=== PATIENT | female | born 1950 | race Caucasian/White ===

== ENCOUNTER → 2019-07-28 08:17 | Outpatient (CLI) | payer OTHER, MEDICARE, SELFPAY ==
--- NOTE | ~2019-07-28 | MM_ITS ---
EXAMINATION: MM screening carlie BI w zain HISTORY: Screening mammogram TECHNIQUE: Craniocaudal and mediolateral oblique 3-D tomosynthesis images were obtained and synthetic 2-D images were generated. CAD analysis was submitted and interpreted. COMPARISON: 07/01/2018, 06/13/2017, 05/15/2016 bilateral digital screening mammogram examinations BREAST PARENCHYMAL COMPOSITION: There are scattered areas of fibroglandular density. FINDINGS: Occasional benign calcifications. There is no evidence of suspicious mass, calcification, o r architectural distortion to suggest malignancy in either breast. There has been no suspicious inter rusty change. IMPRESSION: 1. No mammographic evidence of malignancy. 2. Recommend routine screening mammography in one year. BI-RADS Category 2: Benign finding(s). Reviewed, dictated and finalized at location A. CE EXEC[employer]IVE
== END ==
PROVIDERS: PCP Family Medicine; Visit Provider Family Medicine
DX: Z12.31 Encounter for screening mammogram for malignant neoplasm of breast (principal)
CPT/HCPCS: 77063; 77067

== ENCOUNTER → 2020-09-06 07:46 | Outpatient (CLI) | payer OTHER, MEDICARE, SELFPAY ==
--- NOTE | ~2020-09-06 | MM_ITS ---
EXAMINATION: MM screening carlie BI w zain HISTORY: Screening TECHNIQUE: Craniocaudal and mediolateral oblique 3-D tomosynthesis images were obtained and synthetic 2-D images were generated. CAD analysis was submitted and interpreted. COMPARISON: Comparison to multiple prior studies sequentially, with oldest reviewed study dated 02/27. BREAST PARENCHYMAL COMPOSITION: There are scattered areas of fibroglandular density. FINDINGS: There are new focal asymmetries in the outer aspect of the right breast on CC view with pos sible architectural distortion. The left breast is stable without evidence for malignancy. IMPRESSION: 1. Focal right breast asymmetries laterally on CC view. 2. Additional mammographic views and possible breast ultrasound are recommended. BI-RADS Category 0: Incomplete: Needs additional imaging evaluation. Reviewed, dictated and finalized at location A. IMPRESSION: 1. Focal right breast asymmetries laterally on CC view. 2. Additional mammographic views and possible breast ultrasound are recommended . BI-RADS Category 0: Incomplete: Needs additional imaging evaluation.
== END ==
PROVIDERS: PCP Family Medicine; Visit Provider Family Medicine
DX: Z12.31 Encounter for screening mammogram for malignant neoplasm of breast (principal); R92.8 Other abnormal and inconclusive findings on diagnostic imaging of breast
CPT/HCPCS: 77063; 77067

== ENCOUNTER 2020-09-25 12:35 | Emergency (ER) | payer OTHER, MEDICARE, SELFPAY ==
--- NOTE | ~2020-09-25 | CT_ITS ---
EXAMINATION: CT abdomen pelvis wo con DATE: 09/25/2020 15:06 INDICATION: Abdominal pain. TECHNIQUE: Computed tomography (CT) of the abdomen and pelvis was performed without intravenous contr ast. Automated exposure control and iterative reconstruction technique were employed. The dose-length product was 349.30 mGy-cm. COMPARISON: None. FINDINGS: The visualized portions of the lung bases demonstrate emphysema and mild atelectasis. No pl eural effusion. The heart size is normal. No pericardial effusion. There is a small sliding hiatal he rnia. There is diffuse hepatic steatosis. The pancreas, spleen, and adrenal glands are normal. There is moderate right hydronephrosis and hydroureter. There is moderate left hydronephrosis and hydrouret er. There is asymmetric edema around left kidney. The bladder is markedly distended. There are no dil ated loops of bowel. The appendix is normal. There are no pathologically enlarged lymph nodes. There is no free intraperitoneal fluid. There is mild lumbar spondylosis. IMPRESSION: 1. Markedly distended bladder with moderate bilateral hydronephrosis and hydroureter. Reviewed, dictated and finalized at location A. IMPRESSION: 1. Markedly distended bladder with moderate bilateral hydronephrosis and hydrou reter.
[2020-09-25 12:47] VITALS: BP 143/70; PULSE 80; RESP 16; TEMP 36.2; O2SAT 98
[2020-09-25 13:19] VITALS: BP 143/70; PULSE 80; RESP 18; TEMP 36.2; O2SAT 98
--- NOTE | 2020-09-25 14:07 | ED.GENADULT ---
HPI - General Adult General Chief complaint: Urogenital-Female Stated complaint: ?UTI Time Seen by Provider: 09/25/20 13:50 Source: patient and RN notes reviewed Mode of arrival: ambulatory Limitations: no limitations History of Present Illness HPI narrative: This is a 70 year old female with history of cervical Cancer 2018 s/p radiation who presents for evaluation of lower abdominal pain and back pain. She states she is getting evaluated at [facility] by her oncologist for possible return of her cancer. She reports having intermittent migratory lower abdominal pain for a few weeks. She states she has had CT scan, PET scan over the past 4 months. She recently had a PET scan that showed possible lesion at her urethra so she had a biopsy performed approximately 1 week ago. Over the past couple of days she reports increased urinary hesitancy, mild dysuria. She denies hematuria. She also reports migratory lower back pain. She denies fever or chills. Related Data Home Medications Medication Instructions Recorded Confirmed Calcium with Vitamin D 09/25/20 chlorthalidone 09/25/20 potassium chloride meq 09/25/20 tramadol mg 09/25/20 Allergies Allergy/AdvReac Type Severity Reaction Status Date / Time No Known Allergies Allergy Unverified 09/25/20 13:24 Review of Systems Review of Systems: All systems reviewed & are unremarkable except as noted in HPI and below Constitutional: Constitutional: Denies chills and Denies fever(s) Gastrointestinal: Gastrointestinal: Reports abdominal pain, Denies diarrhea, Reports nausea and Denies vomiting Genitourinary: Genitourinary: Denies hematuria, Denies nocturia, Reports dysuria and Reports flank pain Musculoskeletal: Musculoskeletal: Reports back pain [facility] Past Medical History Medical History (Updated 09/25/20 @ 17:57 by Hazel Romero MD) Cervical cancer Exam Const: General: healthy appearing, no acute distress and alert Orientation/consciousness: patient oriented x3 Eyes: EOM: EOMs intact bilaterally Resp: Effort & Inspection: normal respiratory effort and no retractions Auscultation: clear to auscultation bilaterally Cardio: Rate: regular rate Rhythm: regular rhythm Heart sounds: no murmurs GI: GI Palp: Yes Soft to palpation, Yes Tenderness to palpation present (GI) (LLQ) and No Guarding due to palpation present (GI) Auscultation: normal bowel sounds Back/Spine/Pelvis: Back: no CVA tenderness Skin: General skin exam: normal color Rashes: no rashes Neuro: General: patient oriented x3, moves all extremities and CN's II-XI intact bilaterally Course Reevaluation(s) Reevaluation #1: Nursing staff is unable to get contreras catheter in place due to an obstruction. I am awaiting urologist Date: 09/25/20 Time: 17:08 Reevaluation #2: Patient and family are agreeable to transfer to [place] as direct admission for treatment of her urethral obstruction. PAtient is stable . Date: 09/25/20 Time: 17:55 Consultations Consultation #1: I spoke with Dr. Krishna Acosta (package liner onc at [facility]). He agrees with placing contreras catheter. We will reassess afterwards to see how patient feels to see she needs transfer. Date: 09/25/20 Time: 16:17 Consultation #2: [facility] access reports patient will be getting a bed soon. They are aware urology will take at least 90 minutes to come see patient. He is agreeable to come see patient. At this time, it has been determine after conversation with Arellano to wait until she gets to [place] for urology to see patient. Date: 09/25/20 Time: 17:54 Vital Signs Vital signs: Vital Signs Temperature 97.1 F L 09/25/20 12:47 Pulse Rate 80 09/25/20 12:47 Respiratory Rate 16 09/25/20 12:47 Blood Pressure 143/70 H 09/25/20 12:47 Pulse Oximetry 98 09/25/20 12:47 Temperature 97.1 F L 09/25/20 13:19 Pulse Rate 81 09/25/20 17:44 Respiratory Rate 18 09/25/20 17:44 Blood Pressure 147/105 H
[2020-09-25 14:26] LABS: Add Urine Microscopic? YES; Appearance Urine Cloudy (Clear); Bacteria Urine Trace /hpf; Bilirubin Urine Negative (Negative); Blood Urine 1+ (Negative); Color Urine Yellow (Yellow); Glucose Urine UA Negative (Negative); Ketones Urine Negative (Negative); Leukocyte Esterase Ur 2+ LEU/UL (Negative); Mucus Urine Few /lpf; Nitrate Urine Negative (Negative); Protein Urine 1+ mg/dL (Negative); Specific Grav Ur 1.018 (1.001-1.035); Squamous Epithelial Cell Urine Few /hpf (Few); Urobilinogen Urine Negative mg/dL (<2.0); WBC Urine 31-50 /hpf
[2020-09-25 14:34] LABS: Basophils Percent Auto 0.2 % (0.2-1.2); Hematocrit 38.8 % (37.0-47.0); Hemoglobin 12.7 g/dL (12.0-15.0); Immature Granulocyte Absolute 0.03 K/mm3 (0.00-0.031); Immature Granulocyte Percent A 0.3 % (0-0.5); Lymphocytes Absolute Auto 0.26 K/mm3 (0.9-3.2); Lymphocytes Percent Auto 2.6 % (18.3-44.2); Mean Corpuscular HGB Conc 32.7 g/dl (32-36); Mean Corpuscular Hemoglobin 29.8 pg (26-34); Mean Corpuscular Volume 91.1 fl (80-100); Mean Platelet Volume 9.4 fl (7.4-10.4); Monocytes Absolute Auto 0.6 K/mm3 (0.1-0.6); Monocytes Percent Auto 5.9 % (2.6-8.5); Neutrophils Absolute Auto 9.3 K/mm3 (1.3-6.7); Platelet Count Result 217 k/mm3 (150-375); Red Blood Count 4.26 M/mm3 (4.2-5.4); Red Cell Distribution Width 13.6 % (11.5-14.5); White Blood Count 10.2 K/mm3 (4.5-10.0)
[2020-09-25 14:44] LABS: Alanine Aminotransferase 18 U/L (4-35); Albumin Level 4.3 g/dL (3.5-5.1); Alkaline Phosphatase 87 U/L (38-126); Anion Gap 8 mmol/L (8-16); Aspartate Amino Transferase 35 U/L (14-36); Bilirubin,Total 0.6 mg/dL (0.2-1.3); Blood Urea Nitrogen 39 mg/dL (7-17); Calcium 10.5 mg/dL (8.4-10.2); Carbon Dioxide 32 mmol/L (22-30); Chloride 98 mmol/L (98-107); Estimated CRCL calculation 18 ml/min; Estimated Glomerular Filt Rate 19; Glucose 138 mg/dL (65-105); Lipase 27 U/L (23-300); Potassium 3.2 mmol/L (3.4-5.0); Sodium 138 mmol/L (137-145)
--- NOTE | 2020-09-25 14:50 | PC.NURSE ---
Pt to imaging at this time.
--- NOTE | 2020-09-25 16:50 | PC.NURSE ---
3 RN attempts at contreras catheter insertion, unsuccessful. EDP made aware.
[2020-09-25 17:09] VITALS: BP 142/64; O2SAT 95
[2020-09-25] MEDS: SODIUM CHLORIDE 0.9% IV 500 ML 999 ML IV CONT (17:09)
--- NOTE | 2020-09-25 17:40 | PC.NURSE ---
Mariann from [facility] called to complete screening questions. Mariann states that she will be calling us back shortly.
[2020-09-25 17:44] VITALS: BP 147/105; PULSE 81; RESP 18; O2SAT 98
== END 2020-09-25 18:10 | disposition short-term general hospital (02) ==
PROVIDERS: Emergency Provider General Practice; PCP Family Medicine
DX: N39.0 Urinary tract infection, site not specified (principal); R33.9 Retention of urine, unspecified; N17.9 Acute kidney failure, unspecified; Z85.41 Personal history of malignant neoplasm of cervix uteri; Z92.3 Personal history of irradiation; N13.30 Unspecified hydronephrosis
CPT/HCPCS: 36415; 51703; 74176; 80053; 81001; 83690; 85025; 87086; 87088; 96361; 96365; 99285; J0696; J7040

== ENCOUNTER → 2020-12-03 08:44 | Outpatient (CLI) | payer BC, MEDICARE, SELFPAY ==
--- NOTE | ~2020-12-03 | MM_ITS ---
EXAMINATION: MM diagnostic carlie RT w zain HISTORY: Right breast asymmetries on screening mammogram TECHNIQUE: Additional 3-D tomosynthesis images of the breasts were performed and synthetic 2-D images were generated. CAD analysis was submitted and interpreted. COMPARISON: 09/06/2020, 07/28/2019, 07/01/2018, 06/13/2017 BREAST PARENCHYMAL COMPOSITION: The breasts are heterogeneously dense, which may obscure small masses . FINDINGS: There is a return to baseline fibroglandular appearance with spot compression of the right breast in the area questioned on screening mammogram. Benign right breast calcifications are noted. IMPRESSION: 1. No mammographic evidence of malignancy. 2. Recommend routine screening mammography in one year. BI-RADS Category 2: Benign finding(s). Reviewed, dictated and finalized at location A.
== END ==
PROVIDERS: PCP Family Medicine; Visit Provider Family Medicine
DX: R92.8 Other abnormal and inconclusive findings on diagnostic imaging of breast (principal)
CPT/HCPCS: 77061; 77065; G0279

== ENCOUNTER 2021-05-12 13:19 | Emergency (ER) | payer BC, MEDICARE, SELFPAY ==
[2021-05-12 13:48] VITALS: BP 143/60; PULSE 97; RESP 16; TEMP 37; O2SAT 99
--- NOTE | 2021-05-12 14:17 | ED.FEMALEGU ---
HPI - Female Genitourinary General Chief complaint: Urogenital-Female Stated complaint: uti Time Seen by Provider: 05/12/21 13:50 Source: patient and RN notes reviewed Mode of arrival: ambulatory Limitations: no limitations History of Present Illness HPI Narrative: 70-year-old female presents with concern for possible urinary tract infection. She reports a history of bladder cancer. Reports her tilt tray driver asked her to be seen to get a urine culture and possible urine catheterization. She reports bladder pressure, back pain, dysuria, inability to empty her bladder. She denies fever, bodies, chills, sweats. MD elicited complaint: UTI Related Data Home Medications Medication Instructions Recorded Confirmed Calcium with Vitamin D 1 tablet PO DAILY 09/25/20 05/12/21 chlorthalidone 25 mg PO DAILY 09/25/20 05/12/21 potassium chloride 10 meq PO DAILY 09/25/20 05/12/21 Allergies Allergy/AdvReac Type Severity Reaction Status Date / Time No Known Allergies Allergy Verified 05/12/21 14:23 Review of Systems Review of Systems: CONSTITUTIONAL: Denies malaise, chills, sweats, or fever. GASTROINTESTINAL: Denies abdominal pain, nausea, vomiting GENITOURINARY: Reports dysuria, suprapubic pressure and discomfort, bladder fullness SKIN: Denies rash or itching. MUSCULOSKELETAL: Reports back pain. Denies myalgia. All systems reviewed & are unremarkable except as noted in HPI and below PMFSH Past Medical History Medical History (Updated 05/12/21 @ 15:16 by Casi Snider NP) Cervical cancer Comments At time of signature, agree with nursing past medical, surgical, social and family history. There is no relevant family history pertinent to the presenting complaint Exam Narrative: GENERAL: Well-appearing, well-nourished, and in no acute distress. HEAD: Normocephalic. EYES: PERRLA, conjunctivae clear. NECK: Supple. No lymphadenopathy CHEST: Clear to auscultation. No respiratory distress. HEART: Regular rate and rhythm. ABDOMEN: Soft, nontender upon palpation, nondistended, normal active bowel sounds, no palpable or pulsatile masses, no guarding. No CVA tenderness. Suprapubic distention SKIN: Warm, dry, no rash. NEURO: Alert and oriented x3. PSYCH: Normal mood and affect Course Course Emergency Course: Patient is aware of diagnosis, understands and agrees to treatment plan. Anticipatory guidance given. Patient agrees to follow-up as directed and is aware of reasons to seek care at the emergency department. Portions of this record may have been created with voice recognition software Vital Signs Vital signs: Vital Signs Temperature 98.6 F 05/12/21 13:48 Pulse Rate 97 05/12/21 13:48 Respiratory Rate 16 05/12/21 13:48 Blood Pressure 143/60 H 05/12/21 13:48 Pulse Oximetry 99 05/12/21 13:48 Temperature 98.6 F 05/12/21 13:48 Pulse Rate 97 05/12/21 13:48 Respiratory Rate 16 05/12/21 13:48 Blood Pressure 143/60 H 05/12/21 13:48 Pulse Oximetry 99 05/12/21 13:48 Reviewed. Patient has history of hypertension Procedures Catheter Insertion (Urinary) Urinary Catheter 1: Date of insertion: 05/12/21 Time of insertion: 14:55 Reason for placing indwelling catheter: Acute urinary retention Patient has the following: other (Bladder and urinary tract cancer) Bladder scan/ultrasound used before catheterization: No Antiseptic solution prep: Povidone-Iodine Topical anesthesia used: No Catheter type/location: Urethral Size (Macedonian): 8 Catheter balloon size (mL): Other Results: successfully catheterized-immediate flow Procedure performed: without complications Comment: Straight cath performed, catheter not left in place. MDM - Female Genitourinary MDM Narrative Medical decision making narrative: Exam findings and UA show no acute concerns or changes; patient is non-toxic appearing and is in no distress. Patient is appro
== END 2021-05-12 15:30 | disposition home or self-care (01) ==
PROVIDERS: Emergency Provider Nurse Practitioner
DX: N32.89 Other specified disorders of bladder (principal); R33.9 Retention of urine, unspecified; R30.0 Dysuria; Z85.51 Personal history of malignant neoplasm of bladder
CPT/HCPCS: 81003; 87077; 87086; 87186; 99213; G0463

== ENCOUNTER → 2022-01-23 07:47 | Outpatient (CLI) | payer BC, MEDICARE, SELFPAY ==
--- NOTE | ~2022-01-23 | MM_ITS ---
EXAMINATION: MM screening carlie BI w zain HISTORY: Screening mammogram, family history of breast cancer in her mother. TECHNIQUE: Craniocaudal and mediolateral oblique 3-D tomosynthesis images were obtained and synthetic 2-D images were generated. CAD analysis was submitted and interpreted. COMPARISON: 12/03/2020, 09/06/2020, 07/28/2019 BREAST PARENCHYMAL COMPOSITION: The breasts are heterogeneously dense, which may obscure small masses . FINDINGS: There is no suspicious mass, calcification, or architectural distortion to suggest malignan cy in either breast. There has been no suspicious interval change. IMPRESSION: 1. No mammographic evidence of malignancy. 2. Recommend routine screening mammography in one year. BI-RADS Category 1: Negative Reviewed, dictated and finalized at location A.
== END ==
PROVIDERS: PCP Family Medicine; Visit Provider Family Medicine
DX: Z12.31 Encounter for screening mammogram for malignant neoplasm of breast (principal)
CPT/HCPCS: 77063; 77067

== ENCOUNTER 2022-02-22 19:47 | Emergency (ER) | payer BC, MEDICARE, SELFPAY ==
[2022-02-22 20:02] VITALS: BP 122/56; PULSE 85; RESP 18; TEMP 36.6; O2SAT 97
--- NOTE | 2022-02-22 20:38 | ED.URI ---
HPI - URI/Sore Throat General Chief Complaint: Upper Respiratory Infection Stated Complaint: SOB, Headaches,Chest Pains Time Seen by Provider: 02/22/22 20:37 Source: patient and RN notes reviewed Mode of arrival: ambulatory Limitations: no limitations History of Present Illness HPI Narrative: 71-year-old female presents with concern for cough, nasal congestion, rhinorrhea, headache, chest pain and feeling of shortness of breath with coughing. She reports she had COVID over the summer and this feels similar to those symptoms. She denies fever, body aches, chills, sweats. Reports she used her Flonase and her albuterol inhaler that she had leftover which seem to improve her symptoms slightly. MD elicited complaint: cough Related Data Home Medications Medication Instructions Recorded Confirmed chlorthalidone 25 mg tablet 25 mg PO DAILY 09/25/20 02/22/22 potassium chloride 10 mEq 10 meq PO DAILY 09/25/20 02/22/22 capsule,extended release levothyroxine 75 mcg tablet 75 mcg PO DAILY 02/22/22 02/22/22 Allergies Allergy/AdvReac Type Severity Reaction Status Date / Time No Known Allergies Allergy Verified 02/22/22 20:21 Review of Systems Review of Systems: CONSTITUTIONAL: Denies malaise, chills, sweats, or fever. EYES: Denies visual changes, redness, or discharge. ENT: Reports rhinorrhea, congestion. Denies sinus pain, otalgia and sore throat. CARDIOVASCULAR: Denies chest pain, palpitations, or edema. RESPIRATORY: Reports cough, chest pain and dyspnea with coughing GASTROINTESTINAL: Denies abdominal pain, nausea, vomiting, diarrhea SKIN: Denies rash or itching. MUSCULOSKELETAL: Denies myalgia. NEUROLOGIC: Reports headache. All systems reviewed & are unremarkable except as noted in HPI and below PMFSH Past Medical History Medical History (Updated 02/22/22 @ 20:52 by Casi Snider NP) Cervical cancer Comments At time of signature, agree with nursing past medical, surgical, social and family history. There is no relevant family history pertinent to the presenting complaint Exam Narrative: GENERAL: Nontoxic appearing and in no acute distress. HEAD: Normocephalic EYES: PERRLA, conjunctivae clear ENT: Nares clear, clear discharge. Mucous membranes moist. TM pearly clemons with dull light reflex bilaterally; no tragal tenderness. Oropharynx not erythematous without lesions. Tonsils not enlarged and without exudate, no drooling, no hoarseness, no trismus, uvula midline. NECK: Supple. No lymphadenopathy CHEST: Scattered mild inspiratory wheeze breath sounds equal. No rhonchi, rales, or stridor. No respiratory distress, speaks in full sentences. HEART: Regular rate and rhythm. No murmur heard. SKIN: Warm, dry, no rash. NEURO: Alert and oriented x3. PSYCH: Normal mood and affect Course Course Emergency Course: Patient is aware of diagnosis, understands and agrees to treatment plan. Anticipatory guidance given. Patient agrees to follow-up as directed and is aware of reasons to seek care at the emergency department. Portions of this record may have been created with voice recognition software Level of Care: Express Care Visit Vital Signs Vital signs: Vital Signs Temperature 97.9 F 02/22/22 20:02 Pulse Rate 85 02/22/22 20:02 Respiratory Rate 18 02/22/22 20:02 Blood Pressure 122/56 L 02/22/22 20:02 Pulse Oximetry 97 02/22/22 20:02 Oxygen Delivery Room Air 02/22/22 20:02 Temperature 97.9 F 02/22/22 20:02 Pulse Rate 85 02/22/22 20:02 Respiratory Rate 18 02/22/22 20:02 Blood Pressure 122/56 L 02/22/22 20:02 Pulse Oximetry 97 02/22/22 20:02 Oxygen Delivery Room Air 02/22/22 20:02 Reviewed. MDM - URI/Sore Throat MDM Narrative Medical decision making narrative: Differential diagnosis considered: Reynolds virus, strep pharyngitis, allergic rhinitis, upper respiratory tract infection, sinusitis, rhinosinusitis, nasopharyngitis. viral pharyngitis, otitis media, otitis externa, pneum
[2022-02-23 20:42] LABS: SARS-CoV-2 RNA PCR Negative
== END 2022-02-22 21:13 | disposition home or self-care (01) ==
PROVIDERS: Emergency Provider Nurse Practitioner; PCP Family Medicine
DX: J40 Bronchitis, not specified as acute or chronic (principal); R07.9 Chest pain, unspecified; Z85.41 Personal history of malignant neoplasm of cervix uteri; Z20.822 Contact with and (suspected) exposure to COVID-19
CPT/HCPCS: 87426; 87804; 99213; C9803; G0463; U0003; U0005

== ENCOUNTER → 2023-03-26 07:43 | Outpatient (CLI) | payer BC, MEDICARE, SELFPAY ==
--- NOTE | ~2023-03-26 | MM_ITS ---
EXAMINATION: MM screening carlie BI w zain HISTORY: Screening mammogram, family history of breast cancer in her mother. TECHNIQUE: Craniocaudal and mediolateral oblique 3-D tomosynthesis images were obtained and synthetic 2-D images were generated. CAD analysis was submitted and interpreted. COMPARISON: 01/23/2022, 12/03/2020, 09/06/2020 BREAST PARENCHYMAL COMPOSITION: The breasts are heterogeneously dense, which may obscure small masses . FINDINGS: No suspicious mass, calcification, or architectural distortion are identified in either lissa ast to suggest malignancy. There has been no suspicious interval change. IMPRESSION: 1. No mammographic evidence of malignancy. 2. Recommend routine screening mammography in one year. BI-RADS Category 1: Negative Reviewed, dictated and finalized at location A.
== END ==
PROVIDERS: PCP Family Medicine; Visit Provider Family Medicine
DX: Z12.31 Encounter for screening mammogram for malignant neoplasm of breast (principal)
CPT/HCPCS: 77063; 77067

== ENCOUNTER 2023-05-02 00:19 | Day surgery (SDC) | payer BC, MEDICARE, SELFPAY ==
[2023-04-14 14:14] VITALS: BMI 19.5
--- NOTE | 2023-04-29 09:33 | SUR.PREOP ---
Patient called regarding upcoming procedure. Message left on patient's voicemail regarding preop instructions, appointment times, and procedure prep.
[2023-05-02 06:28] VITALS: BP 168/73; PULSE 68; RESP 18; TEMP 36.2; O2SAT 99; BMI 18.8
[2023-05-02] MEDS: LACTATED RINGERS 1,000 ML 150 ML IV CONT (06:38)
--- NOTE | 2023-05-02 07:22 | WPDANESEPPF ---
Anes - Initial Pre Proc Eval Procedure: Operation Date: 05/02/23 07:30 Proposed Procedures p Colonoscopy - Inocencio Vazquez MD Date/Time: 05/02/23 07:22 Surgeon: Inocencio Vazquez MD Pre Op Diagnosis: Other fecal abnormalities Patient Data Age: 72 Gender: F Height: 1.68 m Weight: 53.1 kg Last Vital Signs Temp 97.2 F L 05/02/23 06:28 Pulse 68 05/02/23 06:28 Resp 18 05/02/23 06:28 BP 168/73 H 05/02/23 06:28 Pulse Ox 99 05/02/23 06:28 O2 Del Method Room Air 05/02/23 06:28 Allergies Allergy/AdvReac Type Severity Reaction Status Date / Time pembrolizumab [From [facility]] AdvReac Intermediate Rash Verified 05/02/23 06:26 Home Medications Medication Instructions Recorded Confirmed Type chlorthalidone 25 mg tablet 25 mg PO DAILY 09/25/20 05/02/23 History potassium chloride 10 mEq 10 meq PO DAILY 09/25/20 05/02/23 History capsule,extended release calcium carbonate 500 mg-vitamin 500 tablet PO DAILY 08/19/22 05/02/23 History D3 15 mcg (600 unit) tablet fexofenadine 180 mg tablet 180 mg PO DAILY 02/10/23 05/02/23 History (Christine Allergy) Patient hx anesthesia problems: none Family hx anesthesia problems: none Results Review: All pre-operative results and documents have been reviewed as part of the pre-operative evaluation. [facility] Past Medical History Medical History (Updated 03/02/23 @ 21:20 by TRISTIAN Dixon) Cervical cancer Disorder of bone density and structure, unspecified Essential (primary) hypertension Family history of colon cancer in mother Family history of malignant neoplasm of digestive organs Hypothyroidism Loose stools Moderate protein malnutrition Nicotine dependence, cigarettes, uncomplicated Social History Social History (Updated 12/31/22 @ 16:22 by Paulina Chapa MA) Smoking packs per day: 0.5 Smoking cigarettes per day: 10.0 Years smoked: 25 Smoking pack-years: 12.50 Smoking status: Current every day smoker Tobacco type: cigarettes Second hand tobacco smoke exposure: Yes Alcohol intake: never Substance use: never Substance use type: does not use Lack of Transportation: No Lack of Food: Never True Current Housing: I Have Housing Concerned About Future Housing: No Difficulty Paying Gas/Electric Bills: No Difficulty Paying for Meds: No Currently Unemployed: No Education: High School Diploma/GED Difficulty w/ Childcare or Family Care: No Living arrangements: alone Occupation/Education: occupation Gender identity (if verbalized by the patient): Female Sexual Orientation (if Verbalized by the Patient): Straight or Heterosexual Spiritual care concerns: No Anes - Eval Final PreProcedure Day of Procedure 05/02/23 07:22 Patient weight: normal Heart: regular rate and rhythm Lungs: clear to auscultation Airway: Mallampati scale class II Neurological: alert and oriented Last oral intake: >/= 8 hours ASA classification: II Emergent: no Anesthetic plan: proceed Anesthesia type and monitoring: general GIVS and standard monitoring Results Review: All pre-operative results and documents have been reviewed as part of the pre-operative evaluation. Informed Consent: The patient's anesthetic plan and its attendant risks and benefits were discussed with the patient/family/POA. Questions were solicited and answers provided to the satisfaction of the patient/family/POA.
--- NOTE | 2023-05-02 07:23 | PM.HPGS ---
History of Present Illness History of Present Illness Consent: Risks, benefits, and alternatives have been discussed and questions answered. Patient agrees to proceed with procedure. Chief complaint: Other fecal abnormalities Narrative: Erin Francis is a 72 year old female Presents for colonoscopy per patient has had irregular bowel movements. She is currently being treated for carcinoma of the cervix. She has had radiation therapy. Additionally the patient's mother had colon cancer. For these reasons surveillance colonoscopy advised. Review of Systems Review of Systems: Review of systems noncontributory. [facility] Past Medical History Medical History (Updated 05/02/23 @ 07:25 by Inocencio Vazquez MD) Cervical cancer Disorder of bone density and structure, unspecified Essential (primary) hypertension Family history of colon cancer in mother Family history of malignant neoplasm of digestive organs Hypothyroidism Loose stools Moderate protein malnutrition Nicotine dependence, cigarettes, uncomplicated Social History Social History (Updated 12/31/22 @ 16:22 by Paulina Chapa MA) Smoking packs per day: 0.5 Smoking cigarettes per day: 10.0 Years smoked: 25 Smoking pack-years: 12.50 Smoking status: Current every day smoker Tobacco type: cigarettes Second hand tobacco smoke exposure: Yes Alcohol intake: never Substance use: never Substance use type: does not use Lack of Transportation: No Lack of Food: Never True Current Housing: I Have Housing Concerned About Future Housing: No Difficulty Paying Gas/Electric Bills: No Difficulty Paying for Meds: No Currently Unemployed: No Education: High School Diploma/GED Difficulty w/ Childcare or Family Care: No Living arrangements: alone Occupation/Education: occupation Gender identity (if verbalized by the patient): Female Sexual Orientation (if Verbalized by the Patient): Straight or Heterosexual Spiritual care concerns: No Meds Home Medications and Allergies Home Medications Medication Instructions Recorded Confirmed Type chlorthalidone 25 mg tablet 25 mg PO DAILY 09/25/20 05/02/23 History potassium chloride 10 mEq 10 meq PO DAILY 09/25/20 05/02/23 History capsule,extended release calcium carbonate 500 mg-vitamin 500 tablet PO DAILY 08/19/22 05/02/23 History D3 15 mcg (600 unit) tablet fexofenadine 180 mg tablet 180 mg PO DAILY 02/10/23 05/02/23 History ([facility]) Allergies Allergy/AdvReac Type Severity Reaction Status Date / Time pembrolizumab [From [facility]] AdvReac Intermediate Rash Verified 05/02/23 06:26 Vital Signs Vital Signs - 24 hr 05/02/23 06:28 Temperature 97.2 F L Pulse Rate 68 Respiratory Rate 18 Blood Pressure 168/73 H Pulse Oximetry 99 Oxygen Delivery Room Air Exam Narrative: Physical exam reveals patient to be alert. Vital signs stable. HEENT exam is unremarkable. Patient is anicteric. Lungs are clear to auscultation and percussion. Heart is without murmur or extra sounds. Abdominal exam bowel sounds present soft nontender with no organomegaly. Digital external rectal exam normal. Assessment and Plan Assessment and plan (1) Family history of colon cancer in mother: Code(s): Z80.0 - Family history of malignant neoplasm of digestive organs Status: Acute Assessment and Plan: Patient's mother had colon cancer. For this reason suggest surveillance colonoscopy at least a 5 year intervals. (2) Change in bowel habit: Code(s): R19.4 - Change in bowel habit Status: Acute Assessment and Plan: Patient has had a change in bowel habits with loose stools. She is currently undergoing treatment with for cervical cancer with radiation therapy and chemotherapy. Potentially this contributes to this. Colonoscopy is requested will be performed. (3) Cervical cancer: Qualifiers: Malignant neoplasm of cer
[2023-05-02 07:54] VITALS: BP 82/40; PULSE 47; RESP 14; O2SAT 97
[2023-05-02 08:04] VITALS: BP 93/46; PULSE 55; RESP 18; O2SAT 100
[2023-05-02 08:14] VITALS: BP 117/56; PULSE 53; RESP 20; O2SAT 100
== END 2023-05-02 08:31 | disposition home or self-care (01) ==
PROVIDERS: PCP Family Medicine; Visit Provider Internal Medicine Gastroenterology
PROC: 0DJD8ZZ Inspection of Lower Intestinal Tract, Via Natural or Artificial Opening Endoscopic (ICD-10-PCS; CPT 45378; principal; 2023-05-02 07:30)
DX: R19.4 Change in bowel habit (principal); K64.8 Other hemorrhoids; Z80.0 Family history of malignant neoplasm of digestive organs; C53.9 Malignant neoplasm of cervix uteri, unspecified; F17.210 Nicotine dependence, cigarettes, uncomplicated; I10 Essential (primary) hypertension; E03.9 Hypothyroidism, unspecified
CPT/HCPCS: 45380; 88305; J2001; J2371; J2704; J7120